=== PATIENT | female | born 1955 | race Caucasian/White ===

== ENCOUNTER 2017-02-09 05:30 | Inpatient (IN) | payer MEDICARE, SELFPAY, OTHER ==
[2017-02-02 17:47] LABS: HEMATOCRIT 41.7 % (36.0-48.0); HEMOGLOBIN 14.4 g/dL (12.0-16.0)
[2017-02-02 18:11] LABS: BUN (BLOOD UREA NITROGEN) 19 MG/DL (6-23); CALCIUM, SERUM 9.6 MG/DL (8.5-10.4); CHLORIDE, SERUM 98 MMOL/L (96-112); CO2 (CARBON DIOXIDE) 25 MMOL/L (24-34); CREATININE 0.92 MG/DL (0.55-1.02); GFR AFRICAN AMERICAN 78 ML/MIN (>=60); GFR NON AFRICAN AMERICAN 67 ML/MIN (>=60); POTASSIUM, SERUM 3.5 MMOL/L (3.5-5.3); SODIUM, SERUM 137 MMOL/L (135-148)
[2017-02-02 18:12] LABS: GLUCOSE, SERUM 164 MG/DL (60-99)
[2017-02-02 20:44] LABS: WBC (NOT ORDERED) (RFLEX) 0 (0-5)
[2017-02-02 21:06] LABS: ASCORBIC ACID (UR NOT ORDER) NEG (NEG); BILIRUBIN, URINE NEGATIVE (NEG); KETONE, URINE TRACE MG/DL (NEG); LEUKOCYTE ESTERASE(NOT OR NEG (NEG)
--- NOTE | ~2017-02-09 | CN ---
Consultation Report [facility] [address] [place]. [address] NAME: MADDIE CARRASCO : 55 STATUS : ADM IN PAT#: [id number] AGE: 61 ADM/REG DATE : 02/09/17 MR#: [id number] REPORT SERV DATE: 02/11/17 DICTATED BY: DANIEL LEIJA DATE: 02/10/17 REPORT STATUS : Draft TRANSCRIBED BY: MODL DATE: 02/10/17 CONSULTATION DATE OF CONSULTATION: 02/10/2017 REASON FOR CONSULTATION: Peripheral small cell lung cancer. HISTORY OF PRESENT ILLNESS: Ms. Maddie Carrasco is a 61-year-old woman with more than a 30- pack year smoking history, chronic lower back pain, arthritis, who reports ongoing shortness of breath and cough for several months. She went to the emergency room at [facility] and was found to have a small left upper lobe mass, roughly 1.5 cm. For this, she underwent a CT- guided biopsy. This showed a small cell lung cancer, high Ki-67, synaptophysin positive, consistent with a primary lung cancer. She was also found to have an 8 cm left renal mass. For this she underwent a left nephrectomy yesterday on 02/09/2017. She has tolerated this well. She is recovering, yet to have a bowel movement, but overall is doing well postoperatively. She reports the chronic cough related to her smoking likely, but no other significant symptoms. PAST MEDICAL HISTORY: Chronic low back pain, bilateral knee pain, newly diagnosed limited stage small cell, newly diagnosed renal mass and likely primary renal tumor, depression, meningioma. HOME MEDICATIONS: 1. Aspirin. 2. BuSpar. 3. Colace. 4. Mevacor. 5. Zoloft. FAMILY HISTORY: Her multiple family members with chronic arthritis. No family history of cancer. SOCIAL HISTORY: She is originally from [place], lives in [place] with her sister. She reports her had lung cancer and had difficulty with treatment. REVIEW OF SYSTEMS: A 12-point review of systems positive for fatigue, weakness, chronic lower back pain, chronic arthritis. Positive shortness of breath and cough. Negative for hemoptysis. Negative for chest pain and discomfort. Negative for nausea, vomiting, diarrhea, melena, hematochezia, hematuria. LABORATORY DATA: CBC shows mild anemia. Creatinine prior to surgery was normal. CT of the brain and the outside CT scans were reviewed. No signs of MAINTENA[employer]CE [employer] lesions. CT scan of the lung reviewed, showing only a left upper lobe peripheral lesion. Consultation Report [address] [place]. [address] NAME: MADDIE CARRASCO : 55 STATUS : ADM IN PAT#: [id number] AGE: 61 ADM/REG DATE : 02/09/17 MR#: [id number] REPORT SERV DATE: 02/11/17 DICTATED BY: DANIEL LEIJA. DATE: 02/10/17 REPORT STATUS : Draft TRANSCRIBED BY: MANNY DATE: 02/10/17 ASSESSMENT/PLAN: Maddie Carrasco is a 61-year-old woman with chronic tobacco use. She has a peripheral small cell lung cancer. I suspect this is limited stage and can be treated with local therapy either surgery or radiation followed by four to six cycles of chemotherapy. Due to the nephrectomy, she will likely require several weeks to recover before beginning treatment. However, we need to begin fairly quickly. Because of her nephrectomy, I will likely substituted carboplatin for cisplatin and give etoposide as we would normally do. I have recommended that we complete staging with a PET-CT as well as MRI of the brain. I will try to arrange this for next week. I will arranged to see her after this as well as a consultation with Radiation Oncology and/or Surgery. We discussed that the small cell has a high recurrence rate. The peripheral small cell has a much higher curative rate most than we typically see in small cell. I have discussed treatment. We will need to get the patient assistance to help us with both emotional support as well as financial support. DBD/MANNY Daniel Leija M.D. / [id number] CC: MD Dasia Jj
--- NOTE | ~2017-02-09 | OP ---
Record Of Operation [facility] [address] [place]. [address] NAME: AURA CARRASCO : 55 STATUS : ADM IN PAT#: [id number] AGE: 61 ADM/REG DATE : 02/09/17 MR#: [id number] REPORT SERV DATE: 02/09/17 DICTATED BY: MARVEL LABOY DATE: 02/09/17 REPORT STATUS : Draft TRANSCRIBED BY: MODL DATE: 02/09/17 DATE OF PROCEDURE: 02/09/2017 SURGEON: Marvel Laboy MD TITLE OF OPERATION: Left laparoscopic radical nephrectomy. PREOPERATIVE DIAGNOSIS: 8 cm left renal mass. POSTOPERATIVE DIAGNOSIS: 8 cm left renal mass. INDICATIONS: Ms. Carrasco is a 61-year-old female with an 8 cm renal mass. It is central in location. She is here for radical nephrectomy. ANESTHESIA: General. COMPLICATIONS: None. IMPLANTS: 16-Palauan Grossman catheter. SPECIMEN: Left kidney. NARRATIVE: The patient was brought to the operating room, identified by her wristband. General anesthesia was induced, and Ancef was given for preoperative antibiotics. A 16- Palauan Grossman catheter was placed in her bladder. Urine was clear. The bladder was inflated with 10 mL of sterile water. The patient was placed in the left modified flank position and secured to the bed with pads and tape. She was prepped and draped in sterile fashion. Her abdomen was insufflated to a pressure of 15 mmHg using a Veress needle. A 12 mm port was placed in her upper left quadrant. The abdomen was inspected. There were no adhesions a second 8 mm port was placed beneath the costal margin. A third 12 mm port was placed in the left lower quadrant. A 15 mm port was placed in a supraumbilical position for later kidney extraction. The operation was begun by dropping the colon along the white line of Toldt exposing the retroperitoneum. The pancreas and spleen were sharply divided off the upper pole of the kidney. Care was taken not to injure these structures. Once the aorta was identified, I entered the retroperitoneum beneath the gonadal vein and ureter. These structures were lifted up off the psoas muscle as was as the kidney. There was solitary renal artery and vein. These were stapled with 35 mm endovascular stapler. I then entered Gerota fascia above the adrenal gland sparing the adrenal gland. All attachments to the kidney and adrenal gland were taken with a LigaSure device. The lateral attachments were taken with LigaSure device. The gonadal vein and ureter were stapled with a 35 mm stapler. The kidney was then freed and placed into an EndoCatch bag. There was no bleeding. The abdomen was desufflated and still there was no bleeding. The 12 mm ports were sequentially closed with a Jensen-Joe device and a 0 Monocryl suture. The supraumbilical incision was then enlarged at the skin and fascia levels. The EndoCatch bag and kidney were delivered from the wound, sent to pathology for analysis. The fascia was closed with #1 Monocryl suture in a [id number] fashion. The wounds were irrigated clear. The Record Of Operation [address] [place]. [address] NAME: AURA CARRASCO : 55 STATUS : ADM IN [facility]#: [id number] AGE: 61 ADM/REG DATE : 02/09/17 MR#: [id number] REPORT SERV DATE: 02/09/17 DICTATED BY: MARVEL LABOY DATE: 02/09/17 REPORT STATUS : Draft TRANSCRIBED BY: MANNY DATE: 02/09/17 subcutaneous tissues were closed with a 3-0 Vicryl suture. Skin was closed with 4-0 Monocryl suture in a subcuticular fashion. Dermabond dressing was placed. There were no complications. RILEY/MANNY Marvel Laboy MD / [id number] CC: Marvel Laboy MD
[~2017-02-09 05:30] MED LIST: AMARYL1 MG PO; ASAB PO; BREO ELLIPTA INH; BUSPAR10 PO; CELEXA20 PO; ENDOCET1 TA1 PO; FOSAMAX70 MG PO; GLUCOPHAGE1000 MG PO; MEVACOR PO; NEXIUM40 PO; NORCO1 TA2 PO; PRAVACHOL40 MG PO; PRIN20 PO; VITD PO; ZOL100 PO
[2017-02-09 10:37] LABS: BASOPHILS 0.3 %; BASOPHILS ABSOLUTE 0.05 10/3/uL (0.0-0.16); EOSINOPHILS 2.4 %; EOSINOPHILS ABSOLUTE 0.45 10/3/uL (0.0-0.53); HEMATOCRIT 32.8 % (36.0-48.0); HEMOGLOBIN 11.3 g/dL (12.0-16.0); IMMATURE GRANULOCYTES 0.5 %; LYMPHOCYTES 12.6 %; LYMPHOCYTES ABSOLUTE 2.34 10/3/uL (0.67-4.30); MANUAL DIFF NO %; MEAN CORPUS HGB CONC 34.5 g/dL (32.0-36.0); MEAN CORPUSCULAR HEMOGLOB 29.9 pg (26.0-34.0); MEAN CORPUSCULAR VOLUME 86.8 fL (80-100); MEAN PLATELET VOLUME 9.2 fL (9.2-13.0); MONOCYTES 4.8 %; MONOCYTES ABSOLUTE 0.89 10/3/uL (0.21-1.20); NEUTROPHILS 79.4 %; PLATELET COUNT 256 10/3/uL (150-400); RBC DISTRIBUTION WIDTH 13.2 % (12.0-16.0); RED CELL COUNT 3.78 10/6/uL (4.0-5.6); WHITE BLOOD CELLS 18.6 10/3/uL (4.5-10.5)
[2017-02-09 10:56] LABS: CALCIUM, SERUM 8.7 MG/DL (8.5-10.4); CHLORIDE, SERUM 105 MMOL/L (96-112); CO2 (CARBON DIOXIDE) 24 MMOL/L (24-34); CREATININE 0.84 MG/DL (0.55-1.02); GFR AFRICAN AMERICAN 87 ML/MIN (>=60); GFR NON AFRICAN AMERICAN 75 ML/MIN (>=60); GLUCOSE, SERUM 180 MG/DL (60-99); POTASSIUM, SERUM 3.9 MMOL/L (3.5-5.3); SODIUM, SERUM 139 MMOL/L (135-148)
[2017-02-09 10:57] LABS: BUN (BLOOD UREA NITROGEN) 8 MG/DL (6-23)
[2017-02-10 04:26] LABS: BASOPHILS 0.1 %; BASOPHILS ABSOLUTE 0.01 10/3/uL (0.0-0.16); EOSINOPHILS 0.9 %; EOSINOPHILS ABSOLUTE 0.11 10/3/uL (0.0-0.53); HEMATOCRIT 31.8 % (36.0-48.0); HEMOGLOBIN 10.8 g/dL (12.0-16.0); IMMATURE GRANULOCYTES 0.4 %; IMMATURE GRANULOCYTES ABSOLUTE 0.05 10/3/uL (0.0-0.11); LYMPHOCYTES 14.9 %; LYMPHOCYTES ABSOLUTE 1.92 10/3/uL (0.67-4.30); MEAN CORPUSCULAR HEMOGLOB 30.2 pg (26.0-34.0); MEAN CORPUSCULAR VOLUME 88.8 fL (80-100); MEAN PLATELET VOLUME 9.4 fL (9.2-13.0); MONOCYTES 7.2 %; MONOCYTES ABSOLUTE 0.93 10/3/uL (0.21-1.20); NEUTROPHILS 76.5 %; NEUTROPHILS ABSOLUTE 9.88 10/3/uL (2.02-8.40); PLATELET COUNT 250 10/3/uL (150-400); RED CELL COUNT 3.58 10/6/uL (4.0-5.6); WHITE BLOOD CELLS 12.9 10/3/uL (4.5-10.5)
[2017-02-10 04:27] LABS: MANUAL DIFF NO %
[2017-02-10 04:37] LABS: BUN (BLOOD UREA NITROGEN) 7 MG/DL (6-23); CALCIUM, SERUM 8.4 MG/DL (8.5-10.4); CHLORIDE, SERUM 105 MMOL/L (96-112); CO2 (CARBON DIOXIDE) 26 MMOL/L (24-34); CREATININE 0.86 MG/DL (0.55-1.02); GFR AFRICAN AMERICAN 85 ML/MIN (>=60); GFR NON AFRICAN AMERICAN 73 ML/MIN (>=60); GLUCOSE, SERUM 141 MG/DL (60-99); POTASSIUM, SERUM 4.6 MMOL/L (3.5-5.3); SODIUM, SERUM 138 MMOL/L (135-148)
[2017-02-11 05:32] LABS: BASOPHILS 0.4 %; BASOPHILS ABSOLUTE 0.03 10/3/uL (0.0-0.16); EOSINOPHILS 3.7 %; EOSINOPHILS ABSOLUTE 0.28 10/3/uL (0.0-0.53); HEMOGLOBIN 10.9 g/dL (12.0-16.0); IMMATURE GRANULOCYTES 0.5 %; IMMATURE GRANULOCYTES ABSOLUTE 0.04 10/3/uL (0.0-0.11); LYMPHOCYTES 26.6 %; MEAN CORPUS HGB CONC 34.1 g/dL (32.0-36.0); MEAN CORPUSCULAR HEMOGLOB 30.1 pg (26.0-34.0); MEAN CORPUSCULAR VOLUME 88.4 fL (80-100); MEAN PLATELET VOLUME 9.2 fL (9.2-13.0); MONOCYTES 9.2 %; MONOCYTES ABSOLUTE 0.69 10/3/uL (0.21-1.20); NEUTROPHILS 59.6 %; NEUTROPHILS ABSOLUTE 4.48 10/3/uL (2.02-8.40); PLATELET COUNT 252 10/3/uL (150-400); RBC DISTRIBUTION WIDTH 12.7 % (12.0-16.0); RED CELL COUNT 3.62 10/6/uL (4.0-5.6)
[2017-02-11 05:37] LABS: MANUAL DIFF NO %; WHITE BLOOD CELLS 7.5 10/3/uL (4.5-10.5)
[2017-02-11 05:43] LABS: BUN (BLOOD UREA NITROGEN) 6 MG/DL (6-23); CHLORIDE, SERUM 106 MMOL/L (96-112); CO2 (CARBON DIOXIDE) 24 MMOL/L (24-34); CREATININE 1.03 MG/DL (0.55-1.02); GFR AFRICAN AMERICAN 68 ML/MIN (>=60); GFR NON AFRICAN AMERICAN 59 ML/MIN (>=60); GLUCOSE, SERUM 137 MG/DL (60-99); POTASSIUM, SERUM 4.2 MMOL/L (3.5-5.3); SODIUM, SERUM 139 MMOL/L (135-148)
[2017-02-11] MEDS ORDERED: PCET PO (08:45)
[2017-02-11] MEDS ORDERED: DSS PO (08:45)
== END 2017-02-11 11:54 | disposition home or self-care (01) | DRG 657 ==
LOC: SDC/OF 05:30 → PACU 10:18 → 4SO 11:24
PROVIDERS: Urology
PROC: 0TT14ZZ Resection of Left Kidney, Percutaneous Endoscopic Approach (ICD-10-PCS; principal; 2017-02-09 07:45)
DX: D41.02 Neoplasm of uncertain behavior of left kidney (principal); C34.12 Malignant neoplasm of upper lobe, left bronchus or lung; Z99.81 Dependence on supplemental oxygen; E66.9 Obesity, unspecified; F32.9 Major depressive disorder, single episode, unspecified; D64.9 Anemia, unspecified; F17.200 Nicotine dependence, unspecified, uncomplicated; G89.29 Other chronic pain; M54.5 Low back pain; Z79.82 Long term (current) use of aspirin; G47.33 Obstructive sleep apnea (adult) (pediatric); F41.9 Anxiety disorder, unspecified; Z68.37 Body mass index [BMI] 37.0-37.9, adult
CPT/HCPCS: 36415; 80048; 81001; 82962; 85014; 85018; 85025; 86850; 86900; 86901; 88307; 93005; 94640; A9270-GY; J0690; J1170; J2250; J2370; J2405; J2710; J2795; J3010